=== PATIENT | female | born 1985 | race Caucasian/White ===

== ENCOUNTER 2019-03-11 16:36 | Emergency (ER) | payer MEDICAID, OTHER ==
[~2019-03-11] VITALS: Ht 172.7 cm; Wt 101.0 kg
[~2019-03-11 16:36] MED LIST: PNV
[2019-03-11] MEDS ORDERED: ONDANSETRON ODT 4 MG ONE (16:56)
[2019-03-11] MEDS ORDERED: ACETAMINOPHEN 500 MG TABLET ONE (16:57)
[2019-03-11] MEDS ORDERED: ONDANSETRON ODT 4 MG PO ONE (17:00)
[2019-03-11] MEDS ORDERED: ACETAMINOPHEN 500 MG TABLET PO ONE (17:00)
--- NOTE | 2019-03-11 17:31 | NUR ---
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
--- NOTE | 2019-03-11 17:51 | NUR ---
pt to ed for n/v/f x1 week. pt connected to monitors. vss. tylenol brought temp down from 103.[address] Dumont to bs for assessment. flu swab complete. awaiting further orders.
--- NOTE | 2019-03-11 17:54 | NUR ---
pt up self to rr with steady gait to provide urine sample. ua sent to lab.
[2019-03-11 18:12] LABS: MICROSCOPIC NOT IND
[2019-03-11 18:25] LABS: CULTURE INDICATED? NO
[2019-03-11 18:28] LABS: BASOPHILS # (AUTO) 0.01 x10^3/uL (0-0.1); BASOPHILS % (AUTO) 0 % (0-1); EOSINOPHILS % (AUTO) 0 % (1-7); LYMPHOCYTES # (AUTO) 0.46 x10^3/uL (1-3.4); LYMPHOCYTES % (AUTO) 3 % (22-44); MD NO; MEAN CORPUSCULAR HGB CONC 33.5 g/dL (32.4-35.8); MEAN CORPUSCULAR VOLUME 89.6 fL (80-100); MEAN PLATELET VOLUME 8.5 fL (7.4-10.4); MONOCYTES # (AUTO) 0.63 x10^3/uL (0.2-0.8); MONOCYTES % (AUTO) 4 % (2-9); NEUTROPHILS # (AUTO) 15.12 x10^3/uL (1.8-6.8); NEUTROPHILS % (AUTO) 93 % (42-75); PLATELET COUNT 145 x10^3/uL (130-400); RED BLOOD COUNT 4.75 x10^6/uL (3.82-5.3); RED CELL DISTRIBUTION WIDTH 12.7 % (9.6-15.2)
[2019-03-11] MEDS ORDERED: KETOROLAC 30 MG/1 ML IVPush ONE (18:30)
[2019-03-11] MEDS ORDERED: SODIUM CHLORIDE 0.9% 1,000ML IVBOLUS ONE (18:30)
[2019-03-11] MEDS ORDERED: KETOROLAC 30 MG/1 ML ONE (18:32)
--- NOTE | 2019-03-11 18:37 | NUR ---
PT RESTING IN ROOM WITH LIGHTS DIMMED. VSS. PIV ESTABLISHED, IVF STARTED AND PT MEDICATED PER MAR. NO NEEDS EXPRESSED. CALL LIGHT WITHIN REACH. AWAITING LAB RESUTLS.
[2019-03-11 18:38] LABS: ALANINE AMINOTRANSFERASE 26 U/L (12-78); ALBUMIN 3.6 g/dL (3.4-5.0); ANION GAP 6 mmol/L (5-15); CALCIUM 8.7 mg/dL (8.5-10.1); CHLORIDE 108 mmol/L (98-107); CREATININE 0.96 mg/dL (0.55-1.02)
[2019-03-11 18:43] LABS: ALKALINE PHOSPHATASE 56 U/L (45-117); BILIRUBIN,TOTAL 0.7 mg/dL (0.2-1.0); TOTAL PROTEIN 7.7 g/dL (6.4-8.2)
--- NOTE | 2019-03-11 18:52 | NUR ---
RECEIVED BS REPORT FROM LEI MARTINEZ TO ASSUME PT. CARE.
--- NOTE | 2019-03-11 19:01 | NUR ---
BS REPORT TO LEI HERNANDEZ.
[2019-03-11 19:02] LABS: RAPID INFLUENZA A Negative (Negative); RAPID INFLUENZA B Negative (Negative)
--- NOTE | 2019-03-11 19:05 | NUR ---
DR. MOER AT TO DISCUSS POC.
--- NOTE | 2019-03-11 19:27 | NUR ---
PT. TO CT VIA [facility].
[2019-03-11] MEDS ORDERED: OMNIPAQUE 350 MG/ML, 100ML BOTTLE ONE (19:39)
--- NOTE | 2019-03-11 19:46 | NUR ---
PT. AMBULATORY TO BR WITH STEADY GAIT. AWAITING CT READ AT THIS TIME. DENIES OTHER NEEDS.
[2019-03-11 20:11] VITALS: BP 101/45
== END 2019-03-11 20:25 | disposition home or self-care (01) ==
LOC: ED 20:19
DX: R11.2 Nausea with vomiting, unspecified (principal); R10.32 Left lower quadrant pain
CPT/HCPCS: 36415; 74177; 80053; 81003; 83690; 84703; 85025; 87400; 93005; 96361; 96374; 99284; J1885; J7030; Q0162; Q9967